=== PATIENT | female | born 1990 | race Caucasian/White ===

== ENCOUNTER 2022-03-26 12:28 | Emergency (ER) | payer BC, SELFPAY ==
[2022-03-26 12:32] VITALS: BP 119/77; PULSE 85; RESP 16; TEMP 36.7; O2SAT 98
--- NOTE | 2022-03-26 13:08 | W.ED.GENAD ---
Discharge Plan Disposition Patient Disposition: HOME Condition: Stable Discharge Details Clinical Impression: Cellulitis of right abdominal wall Primary Care Provider: Deborah Huntley ED Provider: Sanjeev Cotto Home Meds and New Rx's Prescriptions: Continued insulin aspart U-100 [Novolog Flexpen U-100 Insulin] 300 UNITS/3 ML insulin pen 1 unit Sub-Q DIRECTED insulin glargine [Lantus Solostar U-100 Insulin] 300 UNITS/3 ML insulin pen 18 units Sub-Q DAILY Glucagon Emergency Kit (human) 1 MG kit 1 mg IJ DIRECTED PRNQty: 1 0RF Rx Instructions: prn hypoglycemia Discharge Instructions Instructions: Cellulitis (ED) Additional Instructions: Bactrim as directed. Warm compresses every 2 hours for 20 minutes. Plenty of fluids to avoid dehydration. Please watch for new or worsening symptoms and return to the ER for any concerns. Otherwise contact your primary care provider on Monday to discuss your ER visit and need for outpatient reevaluation. I verbally called in your prescription to the pharmacy Medical Decision Making This is a 31-year-old female, type 1 diabetes, presents for skin infection to her right lower abdomen. Patient has insulin pump and this was placed on the right side approximately 3 days ago, she thought she had normal placement. Subsequently yesterday she felt as though there was infiltration around the site, the area became hot, red, and her glucose levels were noted to be over 500. She states that she changed the site to her left abdomen, it appears to be functioning properly, and now her glucose levels are 139. She states that she was outside working in the yard today, likely overdoing it, when she felt generally weak and dizzy. She denies rash anywhere else on her body. Clinically she appears well, nontoxic, hemodynamically stable, afebrile. She reports that she is currently breast-feeding a healthy 9-month-old child who has no difficulty with feeding or any GI symptoms. We discussed antibiotic option and will start Bactrim. Given her glucose is 139, she has no abdominal pain, nausea, vomiting, other symptoms currently, extremely low suspicion for DKA. Glucose likely elevated as the insulin was not being absorbed properly and now is functioning well after the change of the pump site. I do not believe that emergent laboratory values are indicated at this time. Patient and family are comfortable with this plan and have no additional questions or concerns. First dose of Bactrim to be given now. At this time no signs of abscess which would call for I&D Standard discharge and return precautions were provided. Patient understands, is agreeable to this plan, and has no additional questions or concerns upon discharge. This documentation was generated using [employer] system, please disregard any oddities of phrase or misspellings. Medical Records Medical records reviewed: Yes I reviewed the patient's medical records. HPI General Mode of arrival: ambulatory. Date/Time Provider Initiated Documentation: 03/26/22 12:30. Limitations to Documentation: no limitations. Information obtained by: patient and family. History of Present Illness 31 year old F presents to the emergency department with the chief complaint of skin infection, described as moderate, with intensity rated at 4. Quality is described as aching, and is localized to the abdomen. Patient reports no radiation. Patient started experiencing this day(s) (1) and it has been constant. No relieving factors improve symptom(s), No exacerbating factors reported . Patient notes weakness (Generalized, dizziness). Patient did receive the following treatments prior to arrival, none Related Data Home Medications Medication Instructions Recorded Confirmed glucagon (human recombinant) 1 mg 1 mg IJ DIRECTED PRN ##1 07/16/17 03/26/22 injection kit (Glucagon Emergency Kit (human-recomb)) insulin aspart U-100 100 unit/mL 1 unit subcut DIRECTED 07/16/17 03/26/22 (3 mL) subcutaneous pen (Novolog Flexpen U-100 Insulin aspart) insulin glargine 100 unit/mL (3 18 units subcut DAILY 07/16/17 03/26/22 mL) subcutaneous pen (Lantus Solostar U-100 Insulin) Previous Rx's Medication Instructions Recorded glucagon (human recombinant) 1 mg 1 mg IJ DIRECTED PRN ##1 07/16/17 injection kit (Glucagon Emergency Kit (human-recomb)) Allergies Allergy/AdvReac Type Severity Reaction Status Date / Time amoxicillin Allergy Mild Skin Rash Unverified 03/26/22 12:38 General Stated Complaint: RashLesion ZARIA: 3 Review of Systems Constitutional Constitutional: Denies fever(s) and Reports weakness (Generalized) Gastrointestinal Gastrointestinal: Denies nausea and Denies vomiting Integumentary/Breasts Skin/Breast: Reports erythema Neurologic Neurologic: Reports weakness (Generalized) PFSH All Active Problems (Updated 03/26/22 @ 13:17 by RICK Oliver) Cellulitis of right abdominal wall (Acute) Social History Smoking risk assessment performed?: No Do you feel safe at home: Yes Do you feel safe in your relationship?: Yes Exam Const General: cooperative, healthy appearing, comfortable and no acute distress Orientation: alert and awake [facility] Head: normal to inspection, normocephalic and atraumatic Eyes Conjunctivae: conjunctivae normal Neck Neck: normal visual inspection, trachea midline and supple Resp Effort & Inspection: normal respiratory effort and able to speak in complete sentences Cardio Rate: regular rate Rhythm: regular rhythm GI Palpation: soft, not firm, no guarding and no pulsatile masses Abdomen image: 1. Mild erythema, warmth, tenderness, induration without fluctuance, pointing abscess or drainage. No lymphangitic streaking. Skin General skin exam: erythema (As stated above) Neuro General: patient alert, patient awake, moves all extremities and no focal motor deficits Cognition: normal cognition Speech: speech normal Gait: normal gait Motor: muscle tone normal throughout Sensory Exam: no sensory deficits noted Extrem General: normal to inspection and full ROM Psych Appearance: grossly normal Mental Status: mental status grossly normal Course Vital Signs Vital signs: Vital Signs Temperature 36.7 C 03/26/22 12:32 Pulse 85 03/26/22 12:32 Respiratory Rate 16 03/26/22 12:32 Blood Pressure 119/77 03/26/22 12:32 Pulse Oximetry 98 03/26/22 12:32 Temperature 36.7 C 03/26/22 12:32 Temperature Source Temporal Artery Scan 03/26/22 12:32 Pulse 85 03/26/22 12:32 Respiratory Rate 16 03/26/22 12:32 Respiratory Effort 03/26/22 12:50 Blood Pressure 119/77 03/26/22 12:32 Blood Pressure Position Supine 03/26/22 12:32 Pulse Oximetry 98 03/26/22 12:32 Oxygen Delivery Method Room Air 03/26/22 12:32 Oxygen Flow Rate 0 03/26/22 12:32 Pain Level 0 03/26/22 12:32
[2022-03-26] MEDS: Sulfameth/Trimeth DS TAB 1 TAB PO (13:20)
== END 2022-03-26 13:33 | disposition home or self-care (01) ==
PROVIDERS: Emergency Provider Physician Assistant; PCP Nurse Practitioner Family
DX: L03.311 Cellulitis of abdominal wall (principal)
CPT/HCPCS: 99283

== ENCOUNTER 2023-02-07 18:56 | Emergency (ER) | payer BC, SELFPAY ==
[2023-02-07 19:06] VITALS: BP 108/94; PULSE 70; RESP 82; TEMP 37.1; O2SAT 98
--- NOTE | 2023-02-07 19:45 | DI.RAD_ITS ---
Exam(s) XR FOOT RT COMPLETE EXAM: XR FOOT RT COMPLETE CLINICAL HISTORY: question of FB- Glass. TECHNIQUE: 2D digital imaging was performed. Three views. COMPARISON: No exams were available for comparison FINDINGS: BONES: No acute fracture is present. No bony destructive lesion is seen. JOINTS: No dislocation present. SOFT TISSUE: Swelling. IMPRESSION: No acute bony abnormality. DATA REPOSITORY: RADIATION DOSE DELIVERED:
--- NOTE | 2023-02-07 20:42 | DI.VRAD_ITS ---
PROCEDURE INFORMATION: Exam: XR Right Foot Exam date and time: 02/07/2023 8:18 PM Age: 32 years old Clinical indication: Other: Question of fb- glass TECHNIQUE: Imaging protocol: Radiologic exam of the right foot. Views: 3 or more views. COMPARISON: No relevant prior studies available. FINDINGS: Bones/joints: No fracture or dislocation. Soft tissues: No radiopaque foreign body visualized within the soft tissues. IMPRESSION: No acute findings. Dictated and Authenticated by: Con Cisse MD. Ordering:RAÚL Ferrell MD
--- NOTE | 2023-02-07 21:29 | ED.GENADUL_ITS ---
Discharge Plan Disposition Patient Disposition: Home Discharge Details Clinical Impression: Acute foreign body of plantar aspect of right foot Primary Care Provider: Deborah Huntley ED Provider: Ghassan Mena Home Meds and New Rx's Prescriptions: Continued insulin aspart U-100 [Novolog FlexPen U-100 Insulin] 300 UNITS/3 ML insulin pen 1 unit Sub-Q DIRECTED insulin glargine [Lantus Solostar U-100 Insulin] 300 UNITS/3 ML insulin pen 18 units Sub-Q DAILY Glucagon Emergency Kit (human) 1 MG kit 1 mg IJ DIRECTED PRNQty: 1 0RF Rx Instructions: prn hypoglycemia Discharge Instructions Instructions: Soft Tissue Foreign Body (ED) Additional Instructions: Please continue to monitor the wound for any signs of infection and return immediately if this occurs or follow-up with your primary care provider. Otherwise it is recommended to do Epsom salt foot soaks 3-4 times daily for the next couple days to help with any potential infection. Otherwise continue to take your medications as normally prescribed. Stand Alone Forms: Work Release Referrals: Deborah Huntley [Primary Care Provider] - (As needed for reassessment) Discharge Data Discharge Date/Time-TO BE ENTERED AT DEPARTURE: 02/07/23 21:40 Medical Decision Making Patient presenting to the emergency department for chief complaint of right foot foreign body. She states her daughter earlier today broken glass and she feels like she may have stepped on a piece. Patient denies any other injury or trauma. Past medical history of concern is that she is a type I diabetic that is very well controlled which is a positive. Physical exam shows a small puncture wound to the plantar surface of the lateral right foot. Exam is otherwise unremarkable, no signs of cellulitis or surrounding infection. We will perform radiological imaging to see if there is a radiopaque foreign body. Radiological imaging shows no radiopaque foreign body noted on my review. Bedside ultrasound was utilized though and there was a small area of concern for foreign body. Patient gave verbal consent for wound exploration and foreign body removal. Please see procedure note but a small glass foreign body was removed. I do not feel that patient needs to be prophylactically placed upon antibiotics but was encouraged to do Epsom salt foot soaks and monitor closely given her history of diabetes. After discussion of diagnosis and plan of care patient has no further needs, questions, or concerns and states clear understanding to return to the emergency department for any worsening symptoms. This documentation was generated using [employer] dictation system, please disregard any oddities of phrase or misspellings. HPI General Mode of arrival: ambulatory . Date/Time Provider Initiated Documentation: 02/07/23 19:50 . Limitations to Documentation: no limitations . Information obtained by: patient and RN notes reviewed . History of Present Illness 32 year old F presents to the emergency department with the chief complaint of Foreign body right foot, described as mild and moderate, Patient started experiencing this unknown and it has been constant. No relieving factors improve symptom(s), No exacerbating factors reported . Patient notes no other symptoms.. Patient did receive the following treatments prior to arrival, none Related Data Home Medications Medication Instructions Recorded Confirmed glucagon (human recombinant) 1 mg 1 mg IJ DIRECTED PRN ##1 07/16/17 02/07/23 injection kit (Glucagon Emergency Kit (human-recomb)) insulin aspart U-100 100 unit/mL 1 unit subcut DIRECTED 07/16/17 02/07/23 (3 mL) subcutaneous pen (Novolog FlexPen U-100 Insulin aspart) insulin glargine 100 unit/mL (3 18 units subcut DAILY 07/16/17 02/07/23 mL) subcutaneous pen (Lantus Solostar U-100 Insulin) Previous Rx's Medication Instructions Recorded glucagon (human recombinant) 1 mg 1 mg IJ DIRECTED PRN ##1 07/16/17 injection kit (Glucagon Emergency Kit (human-recomb)) Allergies Allergy/AdvReac Type Severity Reaction Status Date / Time amoxicillin Allergy Mild Skin Rash Unverified 02/07/23 19:18 General Stated Complaint: Orthopedic ZARIA: 4 Review of Systems Constitutional Constitutional: Denies fever(s) Musculoskeletal Musculoskeletal: Denies abnormal gait, Denies numbness and Denies tingling Integumentary/Breasts Skin/Breast: Reports as per HPI, Denies erythema and Reports skin pain Neurologic Neurologic: Denies abnormal gait, Denies numbness and Denies tingling PFSH All Active Problems (Updated 02/07/23 @ 21:31 by Ghassan Mena NP) Acute foreign body of plantar aspect of right foot (Acute) Social History Smoking/Tobacco Use Status: Never Smoking risk assessment performed?: Yes Alcohol Intake: never Substance use type: does not use Do you feel safe at home: Yes Do you feel safe in your relationship?: Yes Exam Const General: cooperative, no acute distress and not ill appearing Orientation: alert, awake and oriented x3 HENMT Mouth: moist mucous membranes Resp Effort & Inspection: normal respiratory effort, able to speak in complete sentences and no respiratory distress Neuro General: patient alert, patient awake, patient oriented x3, moves all extremities and no focal motor deficits Sensory Exam: no sensory deficits noted Extrem General: normal exam except as noted Right lower extremity: foot Details: puncture wound plantar lateral mid Details: single Course Vital Signs Vital signs: Vital Signs Temperature 37.1 C 02/07/23 19:06 Pulse 70 02/07/23 19:06 Respiratory Rate 82 H 02/07/23 19:06 Blood Pressure 108/94 H 02/07/23 19:06 Pulse Oximetry 98 02/07/23 19:06 Temperature 37.1 C 02/07/23 19:06 Temperature Source Oral 02/07/23 19:06 Pulse 70 02/07/23 19:06 Respiratory Rate 82 H 02/07/23 19:06 Respiratory Effort Normal 02/07/23 19:09 Blood Pressure 108/94 H 02/07/23 19:06 Blood Pressure Position Sitting 02/07/23 19:06 Pulse Oximetry 98 02/07/23 19:06 Oxygen Delivery Method Room Air 02/07/23 19:06 Oxygen Flow Rate 0 02/07/23 19:06 Pain Level 4 02/07/23 19:06 Lab/Test Results Lab/Test Results: POC- Test(urine) Negative Procedures Foreign Body Removal Time Out Performed: yes Site: right and foot Description of foreign body: other (glass) Sedation/Analgesia: none Technique: manual removal Confirmed by:: direct visualization Complications: none Neurovascular: normal capillary fill, distal light touch sensation intact and distal motor function normal
== END 2023-02-07 21:40 | disposition home or self-care (01) ==
PROVIDERS: Emergency Provider Nurse Practitioner Family; PCP Nurse Practitioner Family
DX: S91.341A Puncture wound with foreign body, right foot, initial encounter (principal); W22.8XXA Striking against or struck by other objects, initial encounter
CPT/HCPCS: 81025; 99283; 73630